=== PATIENT | male | born 1970 | race Caucasian/White ===

== ENCOUNTER 2024-09-21 20:01 | Emergency (ER) | payer OTHER ==
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
[2024-09-21] MEDS ORDERED: propofoL 200 MG/20 ML VIAL IV ONE (21:13)
[2024-09-21] MEDS ORDERED: NA CHLORIDE 0.9% 1,000 ML ONE (21:15)
--- NOTE | 2024-09-21 21:49 | RAD REPORT ---
EXAM:Hip Right 2 View HISTORY: hip dislocation RIGHT COMPARISON: None IMPRESSION: Superior and lateral dislocation of the right hip arthroplasty. No fracture.
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
--- NOTE | 2024-09-21 22:12 | ER ---
Nurse's Notes [facility] Name: Darrin Mendez Age: 53 yrs Sex: Male : 1970 Arrival Date: 09/21/2024 Time: 20:01 Bed 16 Private MD: Diagnosis: Right hip prosthesis dislocation and reduction by physician, moderate sedation Presentation: 09/21 20:05 Chief complaint: Patient states: my hip pop out while I am changing trash bag, didn't rg5 feel down. I manage to crawl back to my house. 20:05 Care prior to arrival: Medication(s) given: zofran 4 mg, fentanyl 100 mcg IV. Mechanism rg5 of Injury: hip dislocation. Trauma event details: Injury occurred in the [facility]. 20:05 Acuity: SAMARA 3 rg5 20:05 Acuity: SAMARA 3 rg5 20:05 Method Of Arrival: EMS: [facility] rg5 20:05 Coronavirus screen: Client denies travel out of the [place] in the last 14 days. rg5 20:05 Ebola Screen: Patient negative for fever greater than or equal to 101.5 degrees rg5 Fahrenheit, and additional compatible Ebola Virus Disease symptoms. Initial Sepsis Screen: Does the patient meet any 2 criteria? No. Patient's initial sepsis screen is negative. Risk Assessment: Do you want to hurt yourself or someone else? Patient reports no desire to harm self or others. Onset of symptoms was September 21, 2024. 20:05 Initial Sepsis Screen: Does the patient have a suspected source of infection? No. rg5 Patient's initial sepsis screen is negative. Historical: - Allergies: 20:05 Morphine; rg5 20:05 tramadol; rg5 - Immunization history: Last tetanus immunization: unknown. - Infectious Disease History:: Denies. - Social history:: Smoking status: Patient/guardian denies using tobacco, Stopped _ months ago 2. Screenin:05 Abuse screen: Denies threats or abuse. Tuberculosis screening: No symptoms or risk rg5 factors identified. 20:[address] [facility] ED Fall Risk Assessment (Adult) History of falling in the last 3 months, rg5 including since admission Yes- single mechanical fall (1 pt) Confusion or Disorientation No (0 pts) Intoxicated or Sedated No (0 pts) Impaired Gait Yes (1 pt) Mobility Assist Device Used Yes (1 pt) Altered Elimination No (0 pt) Score/Fall Risk Level 3 or more points = High Risk Oriented to surroundings, Maintained a safe environment, Hourly rounding (assess needs \T\ fall precautionary measures) done, Used ambulatory aids as needed (educated on \T\ assisted with). Nutritional screening: No deficits noted. Primary Survey: 20:05 NO uncontrolled hemorrhage observed. A: The client is awake and alert. The airway is rg5 patent. Breathing/Chest: Spontaneous respiratory effort, equal unlabored respirations, breath sounds clear bilaterally, regular pattern, symmetrical chest rise and fall. Circulation: No external hemorrhage present. Regular and strong central pulse, skin warm/dry/normal color. Disability Pupils are equal, round, reactive to light and accommodation. 21:00 Exposure/Environment: All clothing and personal items were removed. Forensic evidence rg5 collection is not deemed to be indicated at this time. Items placed in patient belonging bag. Reassessment Alertness and Airway: Awake and alert. The airway is patent. Breathing: Spontaneous respiratory effort, equal unlabored respirations, breath sounds clear bilaterally, regular pattern with symmetrical chest rise and fall. Circulation: No external hemorrhage noted. Regular and strong central pulse, skin warm/dry/normal color. Disability: Pupils Pupils are equal, round, reactive to light and accomodation. 22:20 Reassessment Breathing:. rg5 Assessment: 20:05 General: Appears in no apparent distress. comfortable, Behavior is calm, cooperative, rg5 appropriate for age. Pain: Complains of pain in right hip Quality of pain is described as aching, Pain began 2 hours ago. Neuro: Level of Consciousness is awake, alert, obeys commands, Oriented to person, place, time. EENT: No deficits noted. Cardiovascular: Patient's skin is warm and dry. Respiratory: Airway is patent Trachea midline Respiratory effort is even, unlabored, Respiratory pattern is regular, symmetrical. GI: Abdomen is flat, non-distended. : No signs and/or symptoms were reported regarding the genitourinary system. Derm: Skin is intact, Skin is dry, Skin is normal, Skin temperature is warm. Musculoskeletal: Range of motion: intact in right hip. Injury Description: right hip dislocation. 22:23 Reassessment: Patient and/or family updated on plan of care and expected duration. Pain rg5 level reassessed. Patient is alert, oriented x 3, equal unlabored respirations, skin warm/dry/pink. Vital Signs: 20:05 BP 118 / 85; Pulse 88; Resp 18; Temp 98; Pulse Ox 100% on R/A; Weight 78.85 kg; Height rg5 5 ft. 9 in. ; Pain 5/10; 22:00 BP 122 / 71; Pulse 72; Resp 17; Pulse Ox 100% on R/A; Pain 0/10; rg5 20:05 Body Mass Index 25.67 (78.85 kg, 175.26 cm) rg5 20:05 Pain Scale: Adult rg5 22:00 Pain Scale: Adult rg5 Arabella Coma Score: 20:05 Eye Response: spontaneous(4). Motor Response: obeys commands(6). Verbal Response: rg5 oriented(5). Total: 15. Trauma Score (Adult): 20:05 Eye Response: spontaneous(1); Verbal Response: oriented(1); Motor Response: obeys rg5 commands(2); Systolic BP: > 89 mm Hg(4); Respiratory Rate: 10 to 29 per min(4); [place] Score: 15; Trauma Score: 12 ED Course: 20:02 Patient arrived in ED. kmf 20:05 Patient has correct armband on for positive identification. Bed in low position. Call rg5 light in reach. Side rails up X 1. Patient maintains SpO2 saturation greater than 95% on room air. 20:05 Door closed. Noise minimized. Warm blanket given. Verbal reassurance given. rg5 20:05 Antipyretic given from triage as ordered by the ER provider. EKG completed in triage. rg5 Results shown to MD. 20:05 Patient maintains SpO2 saturation greater than 95% on room air. rg5 20:05 No provider procedures requiring assistance completed. Maintain EMS IV. Dressing rg5 intact. Good blood return noted. Site clean \T\ dry. Gauge \T\ site: 18 gauge Left AC. Flushed with 10 mL NS. 20:14 Harjit Greco, CARLY is Primary Nurse. rg5 20:14 Guillermina Stout MD is Attending Physician. sp3 20:19 Triage completed. rg5 20:30 Thermoregulation: warm blanket given to patient. rg5 21:29 EKG done, by ED staff. vk 21:45 Hip Right 2 View XRAY In Process Unspecified. EDMS 21:46 right hip close reduction. rg5 22:13 Hip Right 2 View XRAY In Process Unspecified. EDMS 22:22 IV discontinued, bleeding controlled, No redness/swelling at site. Pressure dressing rg5 applied. 22:23 Provided Education on: post er care. rg5 Administered Medications: 21:46 Drug: Propofol IVP 60 mg IVP once; Have full vial at bedside; Give with MD beside order rg5 Route: IVP; Site: left antecubital; 22:24 Follow up: Response: No adverse reaction rg5 21:46 Drug: Propofol IVP 40 mg IVP once; Document RASS score. Route: IVP; Site: left rg5 antecubital; 22:24 Follow up: Response: No adverse reaction rg5 21:47 Drug: Propofol IVP 20 mg IVP once; Document RASS score. Route: IVP; Site: left rg5 antecubital; 22:24 Follow up: Response: No adverse reaction rg5 21:50 Drug: Propofol IVP 20 mg IVP once; Document RASS score. Route: IVP; Site: left rg5 antecubital; 22:24 Follow up: Response: No adverse reaction rg5 Medication: 20:05 VIS not applicable for this client. rg5 Intake: 20:05 PO: 0ml; Total: 0ml. rg5 Outcome: 22:12 Discharge ordered by . sp3 22:20 Discharged to home ambulatory, rg5 22:20 Condition: stable 22:20 Patient's length of stay was not longer than 2 hours. pt dont have a ridePatient's length of stay extended due to 22:22 Discharge instructions given to patient, Instructed on discharge instructions, follow rg5 up and referral plans. Demonstrated understanding of instructions, follow-up care, medications, Prescriptions given X 1, 23:53 Patient left the ED. rg5 Signatures: Dispatcher [employer] EDMS Guillermina Stout MD MD sp3 Kisha Scott Vivian vk Gallardo, Rommel, RN RN rg5 Corrections: (The following items were deleted from the chart) 20:37 20:05 BP 118 / 85; Pulse 88bpm; Resp 18bpm; Pulse Ox 100% RA; Temp 98F; Pain 5/10, rg5 Adult; rg5 20:55 20:05 Allergies: No Known Allergies; rg5 rg5 20:57 20:50 Reassessment Breathing: rg5 rg5 22:07 22:03 Propofol IVP 20 mg IVP in left antecubital rg5 rg5 22: 21:08 Propofol IVP 60 mg IVP in left antecubital rg5 rg5
--- NOTE | 2024-09-21 22:14 | RAD REPORT ---
EXAM:Hip Right 2 View HISTORY: post reduction RIGHT COMPARISON: None IMPRESSION: Relocated right hip arthroplasty. No fracture.
[2024-09-21 23:59] VITALS: TEMP 98; O2SAT 100
[2024-09-22 00:14] VITALS: BP 122/71
--- NOTE | 2024-09-22 12:11 | EKG ---
Test Date: 2024-09-21 Test Time: 21:27:47 [employer]: DG MEASUREMENT RESULTS: Intervals: Rate: 88 OH: 126 QRSD: 88 QT: 382 QTc: 462 [place]: P: 61 OH: 126 QRS: 26 T: 58 INTERPRETIVE STATEMENTS: Normal sinus rhythm Normal ECG No previous ECG available for comparison Electronically Signed On 09-22-24 12:10:34 BEEF BONER by Jamari Aldrich
== END 2024-09-21 23:53 | disposition home or self-care (01) ==
LOC: ER 20:01
DX: T84.020A Dislocation of internal right hip prosthesis, initial encounter (principal)
CPT/HCPCS: 93005; 73502 ×2; 96374; 99285; 27257; J2704; J7030